=== PATIENT | female | born 1980 | race Caucasian/White ===

== ENCOUNTER 2017-03-31 20:22 | Emergency (ER) | payer MEDICAID, SELFPAY ==
[2017-03-31 20:23] VITALS: BP 147/106; PULSE 146; RESP 20; TEMP 36.7; O2SAT 95; BMI 27.3
[2017-03-31] MEDS: 0.9% Normal Saline 1,000 ML 1000 ML IV (22:07)
[2017-03-31] MEDS: Ondansetron 4 MG/2 ML Vial IV (22:07)
[2017-03-31 22:50] VITALS: BP 151/101; PULSE 138; TEMP 36.7; O2SAT 96
--- NOTE | 2017-03-31 23:10 | ED.DCSUM_ITS ---
- ER Visit Summary Date of Service: 03/31/17 Chief Complaint: Vomiting History of Present Illness: The patient is a 37 F who said 2 days of nausea vomiting. notes slight diarrhea. Feels generally weak. She notes a cough. Headache. Generalized myalgias. Physical Examination: Afebrile tachycardic at 140 blood pressure 147/106 respirations are 26 pulse ox is 95% on room air Gen: Well-nourished well-developed patient puts forth very little effort for the examination Head: Normocephalic atraumatic Eyes: [place]l EOMI ENT: TMs clear no rhinorrhea moist mucous membranes Neck: Supple no lymphadenopathy no JVD nontender CVS: Tachycardic regular rate rhythm no murmurs normal S1-S2 Respiratory: No distress clear to auscultation bilaterally chest nontender Abdomen: Soft nontender nondistended normal bowel sounds no masses Back: Nontender Extremity: Nontender no edema Skin: Normal color no rash Neuro: alert orientated ?3 CN II-XII intact normal strength sensation reflexes gait cerebella Emergency Department Course and Treatment: Patient received IV fluids and Zofran. She also received Tylenol. She is maintaining p.o. She will be discharged home with supportive care. Impression: 1. Gastroenteritis 2. Dehydration This note was generated with [employer] dictation software. It may contain incorrect words, spelling, and punctuation that were not noted in review of the chart prior to signing ED Disposition - Plan for ED Patient: Disposition: Home or Assisted Living Chief Complaint: Nausea/Vomiting/Diarrhea Instructions: ED Gastroenteritis Viral Prescriptions: Ondansetron [Zofran Odt] 4 mg PO Q8H PRN PRN #10 tab PRN Reason: Nausea Referrals: Care Physician,No Primary [Primary Care Provider] - Sammy Burt MD [STAFF PHYSICIAN] - 3-5 Days if not improving Additional Instructions: Drink plenty of fluids. Zofran for nausea Tylenol for headache/fevers If your diarrhea worsens I suggest Imodium.
[2017-03-31] MEDS: Acetaminophen 500 MG Tablet 1000 MG PO (23:30)
[2017-03-31 23:38] VITALS: BP 134/73; PULSE 138; RESP 22; TEMP 36.7; O2SAT 96
[2017-04-01 00:17] VITALS: PULSE 86; RESP 16; O2SAT 98
== END 2017-04-01 00:18 | disposition home or self-care (01) ==
PROVIDERS: Emergency Provider Emergency Medicine
DX: K52.9 Noninfective gastroenteritis and colitis, unspecified (principal); E86.0 Dehydration
CPT/HCPCS: 96361; 96374; 99283; J2405